=== PATIENT | female | born 1980 ===

== ENCOUNTER 2016-10-01 14:37 | Emergency (ER) | payer OTHER ==
[~2016-10-01] VITALS: Ht 165.1 cm; Wt 82.0 kg
[2016-10-01 14:44] VITALS: BP 111/65; TEMP 37.3; Ht 165.1 cm; Wt 82.0 kg
[2016-10-01] MEDS ORDERED: DIPHTHERIA/TETANUS/PERTUSSIS 0.5 ML SYR/VIAL IM. ONE (15:15)
--- NOTE | 2016-10-01 15:46 | DIAGNOSTIC IMAGING REPORT ---
LEFT KNEE 3 VIEWS HISTORY: L knee pain COMPARISON: None. FINDINGS: There is no fracture or dislocation. No knee effusion. Anterior medial soft tissue swelling. No radiopaque foreign bodies. IMPRESSION: No fractures. Electronically signed by: Darvin Gimenez M.D. 10/01/2016 3:45 PM Dictated Date/Time: 10/01/2016 3:43 PM
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
[2016-10-01 16:09] VITALS: PULSE 97; O2SAT 97
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
== END 2016-10-01 16:11 | disposition home or self-care (01) ==
LOC: C.EDD 14:39
DX: S80.01XA Contusion of right knee, initial encounter (principal); S80.02XA Contusion of left knee, initial encounter; M25.512 Pain in left shoulder; M25.562 Pain in left knee; T14.8 Other injury of unspecified body region; V49.49XA Driver injured in collision with other motor vehicles in traffic accident, initial encounter; Y92.410 Unspecified street and highway as the place of occurrence of the external cause